=== PATIENT | female | born 1965 | race Two or more races ===

== ENCOUNTER 2020-10-23 17:17 | Emergency (ER) | payer SELFPAY ==
[~2020-10-23] VITALS: Ht 154.9 cm; Wt 73.3 kg
[2020-10-23] MEDS ORDERED: methylPREDNISolone ACETATE 80 MG/ML VIAL. IM ONE (19:15)
[2020-10-23] MEDS ORDERED: KETOROLAC 60 MG/2 ML VIAL. IM ONE (19:15)
[2020-10-23 20:11] LABS: BILIRUBIN,URINE NEGATIVE (NEG); CLARITY,URINE CLEAR; COLOR,URINE YELLOW; NITRITE,URINE NEGATIVE (NEG); PROTEIN,URINE 30 mg/dL (NEG-TRACE); UROBILINOGEN,URINE 0.2 mg/dL (0.2 mg/dL)
[2020-10-23 20:15] LABS: BACTERIA,URINE MODERATE /HPF (0-FEW)
[2020-10-23 20:16] LABS: RBC,URINE OCC /HPF (0-2)
[2020-10-23 21:33] VITALS: BP 128/60
[2020-10-23] MEDS ORDERED: CYCL10TA2 PO (21:35)
[2020-10-23] MEDS ORDERED: IBUP-1007 PO (21:35)
--- NOTE | 2020-10-23 21:36 | PHYS DOC ---
Past Medical History Past Surgical History: No Surgical History (LOIDA RUSH APRN) Smoking Status: Never Smoker Alcohol Use: None (LOIDA RUSH APRN) General Adult EDM: Chief Complaint: BACK PAIN OR INJURY HPI: HPI: Patient is a 54 year old female presents emergency department chief complaint of low back pain for the past 2 weeks with burning sensation down her right buttocks. Patient states it is worse while she is working and rates it a 10 out of 10 however when she is lying at home its only a 5 out of 10. 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 Patient states minimal relief with vapor rub and [place] type creams. Patient has not taken any oral pain medications, ice applications, or tried heat applications. Patient denies any burning with urination, increased urinary frequency, seeing blood in her urine, patient denies STI concerns, denies urinary tract infection concerns, denies any numbness to her buttocks or periarea, denies radiation of pain down her lower extremities, denies numbness or tingling down her lower extremities. Patient denies any loss of bowel or bladder continence, denies urinary retention. Patient denies any other physical complaints or physical concerns. (LOIDA RUSH APRN) Review of Systems: Review of Systems: 14 body systems of review of systems have been reviewed. See HPI for pertinent positives and negative responses, otherwise all other systems are negative, nonpertinent or noncontributory. Constitutional: Negative except as outlined in HPI above. Skin: Negative except as outlined in HPI above. Eyes: Negative except as outlined in HPI above. HENT: Negative except as outlined in HPI above. Respiratory: Negative except as outlined in HPI above. Cardiovascular: Negative except as outlined in HPI above. GI: Negative except as outlined in HPI above. : Negative except as outlined in HPI above. Musculoskeletal: Negative except as outlined in HPI above. Integument: Negative except as outlined in HPI above. Neurologic: Negative except as outlined in HPI above. Endocrine: Negative except as outlined in HPI above. Lymphatic: Negative except as outlined in HPI above. Psychiatric: Negative except as outlined in HPI above. (LOIDA RUSH APRN) Heart Score: C/O Chest Pain: No Risk Factors: Risk Factors: DM, Current or recent (<one month) smoker, HTN, HLP, family history of CAD, obesity. Risk Scores: Score 0 - 3: 2.5% MACE over next 6 weeks - Discharge Home Score 4 - 6: 20.3% MACE over next 6 weeks - Admit for Clinical Observation Score 7 - 10: 72.7% MACE over next 6 weeks - Early Invasive Strategies (LOIDA RUSH APRN) C/O Chest Pain: N/A (TELLO,ELVIS I DO) Current Medications: Current Medications Medications (Trade) Dose Ordered Sig/Shyla Start Time Stop Time Status Last Admin Dose Admin Ketorolac Tromethamine (Toradol Im) 60 mg 1X ONCE 10/23/20 19:15 10/23/20 19:33 DC 10/23/20 19:58 60 MG Methylprednisolone Acetate (DEPO-Medrol 80MG VIAL) 80 mg 1X ONCE 10/23/20 19:15 10/23/20 19:33 DC 10/23/20 19:58 80 MG (LOIDA RUSH APRN) Allergies: Allergies: Allergies Coded Allergies Type Severity Reaction Last Updated Verified No Known Drug Allergies 10/23/20 No (LOIDA RUSH APRN) Physical Exam: PE: Constitutional: Well developed, well nourished, no acute distress, non-toxic appearance. 53-year-old female in no apparent distress. HENT: Normocephalic, atraumatic. Eyes: Conjunctiva normal, no discharge. Neck: Normal range of motion, no stridor. Cardiovascular: No cyanosis appreciated, distal cap refill less than 2 seconds. Lungs & Thorax: Patient is in no respiratory distress, no audible adventitious lung sounds appreciated. Abdomen: Nontender, no abnormalities noted. Skin: Warm, dry, no erythema, no rash. Back: No deformities appreciated, no midline spinal tenderness, pain to the left and right side lumbar area with pain to right buttocks area to palpation. No deformities appreciated, no discoloration or swelling of the back appreciated. No ecchymosis appreciated, no crepitus appreciated. Extremities: No tenderness, no cyanosis, no clubbing, ROM intact, no edema. Dis john cap refill less than 2 seconds, 2+ dorsalis pedis/posterior tibial pulses. Neurologic: Alert and oriented X 3, normal motor function, normal sensory function, no focal deficits noted. Psychologic: Affect normal, judgement normal, mood normal. (LOIDA RUSH APRN) Current Patient Data: Labs: Laboratory Tests Test 10/23/20 19:45 Urine Collection Type Unknown Urine Color Yellow Urine Clarity Clear Urine pH 5.0 (<5.0-8.0) Urine Specific [place] 1.025 (1.000-1.030) Urine Protein 30 mg/dL (NEG-TRACE) Urine Glucose (UA) >=1000 mg/dL (NEG) Urine Ketones (Stick) Negative mg/dL (NEG) Urine Blood Small (NEG) Urine Nitrite Negative (NEG) Urine Bilirubin Negative (NEG) Urine Urobilinogen Dipstick 0.2 mg/dL (0.2 mg/dL) Urine Leukocyte Esterase Trace (NEG) Urine RBC Occ /HPF (0-2) Urine WBC 5-10 /HPF (0-4) Urine Squamous Epithelial Cells Few /LPF Urine Bacteria Moderate /HPF (0-FEW) Urine Mucus Mod /LPF Vital Signs: Vital Signs Date Time Temp Pulse Resp B/P (MAP) Pulse Ox O2 Delivery O2 Flow Rate FiO2 10/23/20 20:03 61 18 187/79 (115) 96 Room Air 10/23/20 18:13 98.4 98.4 (LOIDA RUSH APRN) EKG: EKG: [] (LOIDA RUSH APRN) Radiology/Procedures: Radiology/Procedures: [] (LOIDA RUSH APRN) Course & Med Decision Making: Course & Med Decision Making Pertinent Labs and Imaging studies reviewed. (See chart for details) 54-year-old female, vital signs reviewed, [facility] emergency department complaining of low back pain for 2 weeks. Physical examination consistent with sciatica pain, no saddle anesthesia, will order urinalysis assay to rule out infection. I am steroid injection, Toradol injection. Patient's urine equivocal, will treat empirically with Keflex related to hematuria and leukocyte Estrace, upon reexamination of the patient, patient states that her pain level is down to a 1 or 2 stating good relief and is ready to go home. Discussed with patient diagnosis of sciatica, follow-up with PCP this week, return to ER precaution concerns Patient gave verbal understanding discharge home instructions, follow-up with PCP this week, return to ER precautions concerns, patient is hemodynamically stable, in no apparent distress, nontoxic in appearance of discharge, patient was discharged home without incident. (LOIDA RUSH APRN) Course & Med Decision Making Patients Care and treatment plan provided by ER Nurse Practitioner. I was available for consult. Patient's chart reviewed. (ELVIS JAVED I DO) Zuleyma Disclaimer: Zuleyma Disclaimer: This electronic medical record was generated, in whole or in part, using a voice recognition dictation system. (LOIDA RUSH APRN) Departure Departure Impression: Primary Impression: Sciatica Qualified Codes: M54.31 - Sciatica, right side; M54.32 - Sciatica, left side Additional Impression: Urinary tract infection Qualified Codes: N39.0 - Urinary tract infection, site not specified; R31.9 - Hematuria, unspecified Disposition: 01 HOME / SELF CARE / HOMELESS Condition: GOOD Referrals: NO PCP (PCP) Patient Instructions: Sciatica, Urinary Tract Infection Additional Instructions: You were seen today in the emergency department for low back pain. Your symptoms are consistent with sciatica pain. Your urine showed an infection that I am covering with an antibiotic called Keflex. Please take as directed. Please follow-up with your doctor soon for ongoing pain management, you may see Dr. Cerna at the following address. Thank you for visiting our Emergency Department. It was a pleasure taking care of you today in the emergency department and we appreciate you trusting us with your care. If any additional problems come up don't hesitate to return to visit us. Please follow up with your primary care provider so they can plan additional care if needed and know about the problem that you had. If symptoms worsen come back to the Emergency Department. Any concerning symptoms that start such as chest pain, shortness of air, weakness or numbness on one side of the body, running high fevers or any other concerning symptoms return to the ER. Dr. Adarsh Cerna [address] [place] [address] EMERGENCY DEPARTMENT GENERAL DISCHARGE INSTRUCTIONS Thank you for coming to [facility] Emergency Department (ED) today and trusting us with you care. We trust that you had a positive experience in our Emergency Department. If you wish to speak to the department management, you may call the Director at [phone]. YOUR FOLLOW UP INSTRUCTIONS ARE FOLLOWS: 1. Do you have a private Doctor? If you do not have a private doctor, please ask for a resource list of physicians or clinics that may be able to assist you with follow up care. 2. The Emergency Physicain has interpreted your x-rays. The X-Ray specialist will also review them. If there is a change in the findings, you will be notified in 48 hours when at all possible. 3. A lab test or culture has been done, your results will be reviewed and you will be notified if you need a change in treatment. ADDITIONAL INSTRUCTIONS AND INFORMATION: 1. Your care today has been supervised by a physician who is specially trained in emergency care. Many problems require more than one evaluation for a complete diagnosis and treatment. We recommend that you schedule your follow up appointment as recommended to ensure complete treatment of you illness or injury. If you are unable to obtain follow up care and continue to have a problem, or if your condition worsens, we recommend that you return to the ED. 2. We are not able to safely determine your condition over the phone nor are we able to give sound medical advice over the phone. For these safety reasons, if you call for medical advice we will ask you to come to the ED for further evaluation. 3. If you have any questions regarding these discharge instructions please call the ED at [phone]. SAFETY INFORMATION: In the interest of safety, wellness, and injury prevention; we encourage you to wear your sealbelt, if you smoke; quite smoking, and we encourage family to use a protective helmet for bicycling and other sporting events that present an increased risk for head injury. IF YOUR SYMPTOMS WORSEN OR NEW SYMPTOMS DEVELOP, OR YOU HAVE CONCERNS ABOUT YOUR CONDITION; OR IF YOUR CONDITION WORSENS WHILE YOU ARE WAITING FOR YOUR FOLLOW UP APPOINTMENT; EITHER CONTACT YOUR PRIMARY CARE DOCTOR, THE PHYSICIAN WHOSE NAME AND NUMBER YOU WERE GIVEN, OR RETURN TO THE ED IMMEDIATELY. Scripts Cyclobenzaprine Hcl (CYCLOBENZAPRINE HCL) 10 Mg Tablet 10 MG PO TID for BACK SPASMS, #15 TAB 0 Refills Prov: LOIDA RUSH APRN 10/23/20 Ibuprofen (IBUPROFEN) 600 Mg Tablet 600 MG PO PRN Q6HRS PRN for INFLAMMATION, #30 TAB 0 Refills Prov: LOIDA RUSH APRN 10/23/20 LOIDA RUSH APRN Oct 23, 2020 21:36 ELVIS JAVED DO Oct 25, 2020 20:25
== END 2020-10-23 21:55 | disposition home or self-care (01) ==
LOC: ER 17:17
DX: N39.0 Urinary tract infection, site not specified (principal); M54.42 Lumbago with sciatica, left side
CPT/HCPCS: 81001; 87086; 96372; 99284; J1040; J1885

== ENCOUNTER 2020-11-12 13:00 | Emergency (ER) | payer SELFPAY ==
[~2020-11-12] VITALS: Ht 157.5 cm; Wt 72.7 kg
[~2020-11-12 13:00] MED LIST: CYCL10TA2 PO; IBUP-1007 PO
[2020-11-12] MEDS ORDERED: CIPR10DR AD (13:40)
[2020-11-12] MEDS ORDERED: AMOX1TAB61 PO (13:40)
--- NOTE | 2020-11-12 13:40 | PHYS DOC ---
Past Medical History Past Surgical History: No Surgical History Smoking Status: Never Smoker Alcohol Use: None General Adult EDM: Chief Complaint: EARACHE/EAR PAIN HPI: HPI: Patient is a 54 year old female who present to ER for evaluation of right ear pain for 3 days. Patient started noticed fluid draining from her right ear last night. Patient had no history of diabetic. Patient denied headache, no neck pain, no cough, no fever. Patient denies any hearing loss. Review of Systems: Review of Systems: Constitutional: Denies fever or chills. [] Eyes: Denies change in visual acuity. [] HENT: Denies nasal congestion or sore throat , positive for right ear pain Respiratory: Denies cough or shortness of breath. [] Cardiovascular: Denies chest pain or edema. [] GI: Denies abdominal pain, nausea, vomiting, bloody stools or diarrhea. [] : Denies dysuria. [] Musculoskeletal: Denies back pain or joint pain. [] Integument: Denies rash. [] Neurologic: Denies headache, focal weakness or sensory changes. [] Endocrine: Denies polyuria or polydipsia. [] Lymphatic: Denies swollen glands. [] Psychiatric: Denies depression or anxiety. [] Heart Score: C/O Chest Pain: N/A Risk Factors: Risk Factors: DM, Current or recent (<one month) smoker, HTN, HLP, family history of CAD, obesity. Risk Scores: Score 0 - 3: 2.5% MACE over next 6 weeks - Discharge Home Score 4 - 6: 20.3% MACE over next 6 weeks - Admit for Clinical Observation Score 7 - 10: 72.7% MACE over next 6 weeks - Early Invasive Strategies Allergies: Allergies: Allergies Coded Allergies Type Severity Reaction Last Updated Verified No Known Drug Allergies 10/23/20 No Physical Exam: PE: Constitutional: Well developed, well nourished, no acute distress, non-toxic appearance. [] HENT: Normocephalic, atraumatic, oropharynx moist, no oral exudates, nose normal. Right external ear canal is swollen with yellow redness, tender when tragus was palpated. Right tympanic membrane inflamed and bulging. No mastoid tenderness to palpation Eyes: PERRLA, EOMI, conjunctiva normal, no discharge. [] Neck: Normal range of motion, no tenderness, supple, no stridor. [] Cardiovascular:Heart rate regular rhythm, no murmur [] Lungs & Thorax: Bilateral breath sounds clear to auscultation [] Abdomen: Bowel sounds normal, soft, no tenderness, no masses, no pulsatile masses. [] Skin: Warm, dry, no erythema, no rash. [] Back: No tenderness, no CVA tenderness. [] Extremities: No tenderness, no cyanosis, no clubbing, ROM intact, no edema. [] Neurologic: Alert and oriented X 3, normal motor function, normal sensory function, no focal deficits noted. [] Psychologic: Affect normal, judgement normal, mood normal. [] EKG: EKG: [] Radiology/Procedures: Radiology/Procedures: [] Course & Med Decision Making: Course & Med Decision Making Pertinent Labs and Imaging studies reviewed. (See chart for details) [] Dragon Disclaimer: Dragon Disclaimer: This electronic medical record was generated, in whole or in part, using a voice recognition dictation system. Departure Departure Impression: Primary Impression: Acute otitis externa of right ear Additional Impression: Otitis media of right ear Disposition: HOME / SELF CARE / HOMELESS Condition: STABLE Referrals: NO PCP (PCP) follow up with your doctor as needed in 2 days. Patient Instructions: Otitis Externa, Otitis Media, Adult Additional Instructions: Thank you for visiting our Emergency Department. We appreciate you trusting us with your care. If any additional problems come up don't hesitate to return to visit us. Please follow up with your primary care provider so they can plan additional care if needed and know about the problem that you had. If symptoms worsen come back to the Emergency Department. Any concerning symptoms that start such as chest pain, shortness of air, weakness or numbness on one side of the body, running high fevers or any other concerning symptoms return to the ER. Scripts Ciprofloxacin/Hydrocortisone (CIPRO HC OTIC SUSPENSION) 10 Ml Drops.susp 3 DROP AD BID for 10 Days, #10 ML Prov: JOSHUA JACK DO 11/12/20 Amoxicillin/Potassium Clav (AUGMENTIN 875-125 TABLET) 1 Each Tablet 1 TAB PO BID for 10 Days, #20 TAB 0 Refills Prov: JOSHUA JACK DO 11/12/20 JOSHUA JACK DO Nov 12, 2020 13:40
[2020-11-12 13:43] VITALS: BP 183/87
== END 2020-11-12 14:16 | disposition home or self-care (01) ==
LOC: ER 13:00
DX: H60.501 Unspecified acute noninfective otitis externa, right ear (principal); H66.91 Otitis media, unspecified, right ear
CPT/HCPCS: 99283